=== PATIENT | male | born 1990 | race Caucasian/White ===

== ENCOUNTER 2017-01-31 10:02 | Emergency (ER) | payer BC ==
--- NOTE | 2017-01-31 10:30 | ER Document Report ---
ED Medical Screen (RME) - General Chief Complaint: Abdominal Pain Stated Complaint: ABDOMINAL PAIN Time Seen by Provider: 01/31/17 10:28 Notes: Is a 26-year-old male who presents emergency department complaining of right upper quadrant pain with sudden onset yesterday. Patient states that he noticed the pain when he was driving yesterday afternoon. Describes a sharp stabbing pain in the right upper quadrant with radiation into his back. Feels better leaning forward. Admits to associated nausea, loose stools. Denies any vomiting, constipation, bright red blood per rectum, dark tarry stools. Denies any previous GI history. Otherwise healthy male. No tobacco user, denies alcohol or drug use. Alert and oriented 4, mild discomfort at baseline. Abdomen soft tender in the right upper quadrant negative for rebound or guarding. I have greeted and performed a rapid initial assessment of this patient. A comprehensive ED assessment and evaluation of the patient, analysis of test results and completion of the medical decision making process will be conducted by additional ED providers. TRAVEL OUTSIDE OF THE [place] IN LAST 30 DAYS: No - Related Data Allergies/Adverse Reactions: No Known Allergies Allergy (Unverified 01/31/17 10:05) Past Medical History - Social History Frequency of alcohol use: Rare Drug Abuse: None Renal/ Medical History: Denies: Hx Peritoneal Dialysis Physical Exam - Vital signs Vitals: Temp Pulse Resp BP Pulse Ox 98.1 F 56 L 16 145/92 H 98 01/31/17 10:05 01/31/17 10:05 01/31/17 10:05 01/31/17 10:05 01/31/17 10:05 Course - Vital Signs Vital signs: Temp Pulse Resp BP Pulse Ox 98.1 F 56 L 16 145/92 H 98 01/31/17 10:05 01/31/17 10:05 01/31/17 10:05 01/31/17 10:05 01/31/17 10:05
[2017-01-31] MEDS ORDERED: ONDANSETRON 4 MG TAB.RAPDIS PO ONE (10:31)
[2017-01-31] MEDS ORDERED: OXYCODONE-ACETAMINOPHEN 5-325 MG TABLET PO ONE (10:31)
[2017-01-31 10:45] LABS: ABSOLUTE EOSINOPHILS # (AUTO) 0.1 10^3/uL (0.0-0.6); ABSOLUTE LYMPHOCYTES (AUTO) 1.1 10^3/uL (0.5-4.7); ABSOLUTE MONOCYTES (AUTO) 0.7 10^3/uL (0.1-1.4); ABSOLUTE NEUT (AUTO) 4.3 10^3/uL (1.7-8.2); BASOPHILS % (AUTO) 0.7 % (0-2); EOSINOPHILS % (AUTO) 1.3 % (0-6); HEMATOCRIT 47.3 % (37.9-51.0); HEMOGLOBIN 15.9 g/dL (13.5-17.0); HGB HCT DIFFERENCE 0.4; LYMPHOCYTES % (AUTO) 17.7 % (13-45); MEAN CORPUSCULAR HGB CONC 33.7 g/dL (32.0-36.0); MEAN CORPUSCULAR VOLUME 89 fl (80-97); MONOCYTES % (AUTO) 10.8 % (3-13); RED CELL DISTRIBUTION WIDTH 12.3 % (11.5-14.0); SEGMENTED NEUTROPHILS % (AUTO) 69.5 % (42-78); WHITE BLOOD COUNT 6.1 10^3/uL (4.0-10.5)
[2017-01-31 10:55] LABS: ALANINE AMINOTRANSFERASE 76 U/L (21-72); ALBUMIN 4.8 g/dL (3.5-5.0); ALKALINE PHOSPHATASE 83 U/L (38-126); ANION GAP 15 (5-19); ASPARTATE AMINO TRANSFERASE 43 U/L (17-59); BILIRUBIN,DIRECT 0.4 mg/dL (0.0-0.4); BILIRUBIN,TOTAL 0.9 mg/dL (0.2-1.3); BLOOD UREA NITROGEN 11 mg/dL (7-20); CALCIUM 9.4 mg/dL (8.4-10.2); CARBON DIOXIDE 27 mmol/L (22-30); CHLORIDE 98 mmol/L (98-107); CREATININE RESULT 0.91 mg/dL (0.52-1.25); GLUCOSE 110 mg/dL (75-110); POTASSIUM 4.3 mmol/L (3.6-5.0); SODIUM 140.1 mmol/L (137-145); TOTAL PROTEIN 8.5 g/dL (6.3-8.2)
[2017-01-31 10:56] LABS: APPEARANCE,URINE CLEAR; BILIRUBIN,URINE NEGATIVE (NEGATIVE); GLUCOSE, URINE NEGATIVE (NEGATIVE); KETONES,URINE NEGATIVE (NEGATIVE); LEUKOCYTE ESTERASE,URINE NEGATIVE (NEGATIVE); NITRITE,URINE NEGATIVE (NEGATIVE); PROTEIN,URINE NEGATIVE (NEGATIVE); URINE SPECIFIC GRAVITY 1.009; UROBILINOGEN,URINE NEGATIVE mg/dL (<2.0)
--- NOTE | 2017-01-31 12:10 | RADIOLOGY REPORT (SQ) ---
EXAM DESCRIPTION: U/S ABDOMEN LIMITED W/O DOP COMPLETED DATE/TIME: 01/31/2017 11:56 am REASON FOR STUDY: RUQ pain COMPARISON: None. TECHNIQUE: Dynamic and static grayscale images acquired of the abdomen and recorded on PACS. Additio nal selected color Doppler and spectral images recorded. LIMITATIONS: None. FINDINGS: PANCREAS: No masses. Visualized pancreatic duct normal caliber. LIVER: No masses. Echotexture normal. LIVER VASCULATURE: Normal directional flow of the main portal vein and hepatic veins. GALLBLADDER: Multiple small gallbladder polyps are visualized largest which measures approximately 4 to 5 mm in size. No gallbladder wall thickening. No gallstones. No pericholecystic fluid. ULTRASOUND-DETECTED PARR'S SIGN: Negative. INTRAHEPATIC DUCTS AND COMMON DUCT: CBD and intrahepatic ducts normal caliber. No filling defects. INFERIOR VENA CAVA: Normal flow. AORTA: No aneurysm. RIGHT KIDNEY: Normal size. Normal echogenicity. No solid or suspicious masses. No hydronephrosis. No calcifications. PERITONEAL AND RIGHT PLEURAL SPACE: No ascites or effusions. OTHER: No other significant findings. IMPRESSION: Gallbladder polyps noted measuring between 4 and 5 mm in size. No gallstones. No acute cholecystitis. Otherwise unremarkable right upper quadrant ultrasound. TECHNICAL DOCUMENTATION: JOB ID: [id number] [employer]- All Rights Reserved
--- NOTE | 2017-01-31 13:31 | ER Document Report ---
ED GI/ - General Chief Complaint: Abdominal Pain Stated Complaint: ABDOMINAL PAIN Time Seen by Provider: 01/31/17 10:28 Mode of Arrival: Ambulatory Information source: Patient Notes: Patient is a 26-year-old male who presents to the ER today for right upper quadrant abdominal pain that began yesterday but worsened significantly today. Patient admits to nausea but denies vomiting. He also admits to some diarrhea. He still has his gallbladder. He denies any fevers or chills that he knows of. He has never had gallbladder issues before. He denies any radiation of the pain anywhere else. TRAVEL OUTSIDE OF THE [place] IN LAST 30 DAYS: No - Related Data Allergies/Adverse Reactions: No Known Allergies Allergy (Unverified 01/31/17 10:05) Past Medical History - General Information source: Patient - Social History Smoking Status: Never Smoker Frequency of alcohol use: Rare Drug Abuse: None Family History: Reviewed & Not Pertinent Patient has suicidal ideation: No Patient has homicidal ideation: No Renal/ Medical History: Denies: Hx Peritoneal Dialysis Review of Systems - Review of Systems Constitutional: No symptoms reported EENT: No symptoms reported Cardiovascular: No symptoms reported Respiratory: No symptoms reported Gastrointestinal: See HPI Genitourinary: No symptoms reported Male Genitourinary: No symptoms reported Musculoskeletal: No symptoms reported Skin: No symptoms reported Hematologic/Lymphatic: No symptoms reported Neurological/Psychological: No symptoms reported Physical Exam - Vital signs Vitals: Temp Pulse Resp BP Pulse Ox 98.1 F 56 L 16 145/92 H 98 01/31/17 10:05 01/31/17 10:05 01/31/17 10:05 01/31/17 10:05 01/31/17 10:05 - Notes Notes: PHYSICAL EXAMINATION: GENERAL: Uncomfortable appearing, but in no acute distress. HEAD: Atraumatic, normocephalic. EYES: Pupils equal round and reactive to light, extraocular movements intact, sclera anicteric, conjunctiva are normal. NECK: Normal range of motion, supple without lymphadenopathy LUNGS: CTAB and equal. No wheezes rales or rhonchi. HEART: Regular rate and rhythm without murmurs ABDOMEN: Soft, right upper quadrant tenderness. No guarding, no rebound BACK: no vertebral tenderness, normal ROM GI/: no CVA tenderness EXTREMITIES: Normal range of motion, no pitting edema. No cyanosis. NEUROLOGICAL: Cranial nerves grossly intact. Normal sensory/motor exams. PSYCH: Normal mood, normal affect. SKIN: Warm, Dry, normal turgor, no rashes or lesions noted Course - Re-evaluation Re-evalutation: 01/31/17 13:28 Lab work is unremarkable including a normal white blood cell count, bilirubin, liver function testing. Ultrasound revealed gallbladder polyps, 4 and 5 mm in size, no stones or cholecystitis. Patient pain is completely relieved with Percocet and his nausea is relieved with Zofran. At this time I have consulted with Dr. Maldonado , my attending, who advises discharge and quick follow-up with surgeon. 01/31/17 13:29 - Vital Signs Vital signs: Temp Pulse Resp BP Pulse Ox 97.5 F 56 L 16 119/54 L 98 01/31/17 13:49 01/31/17 13:49 01/31/17 13:49 01/31/17 13:49 01/31/17 10:05 - Laboratory Result Diagrams: 01/31/17 10:20 01/31/17 10:20 Laboratory results interpreted by me: 01/31/17 10:20 ALT 76 H Total Protein 8.5 H Discharge - Discharge Clinical Impression: Polyp of gallbladder, Right upper quadrant abdominal pain, Nausea Disposition: HOME, SELF-CARE Additional Instructions: Return immediately for any new or worsening symptoms. Follow up with surgeon, call tomorrow to make followup appointment. Prescriptions: Ondansetron [Zofran Odt 4 mg Tablet] 1 - 2 tab PO Q4H PRN #15 tab.rapdis PRN Reason: For Nausea/Vomiting Oxycodone HCl/Acetaminophen [Percocet 5-325 mg Tablet] 1 - 2 tab PO Q4H PRN #15 tablet PRN Reason: Forms: Return to Work Referrals: KAMRON DAVALOS MD [ACTIVE STAFF] - Follow up as needed
[2017-01-31 13:50] VITALS: BP 119/54
== END 2017-01-31 13:51 | disposition home or self-care (01) ==
LOC: ER 10:02
DX: R10.11 Right upper quadrant pain (principal); K82.4 Cholesterolosis of gallbladder; R11.0 Nausea; R19.7 Diarrhea, unspecified
CPT/HCPCS: 99284; 36415; 83690; 85025; 80053; 81001; 76705; S0119

== ENCOUNTER 2017-03-01 06:59 | Day surgery (SDC) | payer BC ==
[~2017-03-01 06:59] MED LIST: ACETAMINOPHEN 325 MG TABLET PO PRN; BUPIVACAINE HCL 0.25 % INJ/PF (2.5 MG/1 ML) 30 ML VIAL ONE; CEFAZOLIN 1 GM/D5W RTU 1 GM/50 ML RTUPB IV PRN; LACTATED RINGERS 1000 ML IV PRN; LIDOCAINE 0.5% INJ-PF (5 MG/ML) 50 ML SDV SUBCUT PRN
[2017-03-01] MEDS ORDERED: LIDOCAINE 2% INJ-PF (20 MG/ML) 10 ML AMPUL ONE (08:22)
[2017-03-01] MEDS ORDERED: FENTANYL CITRATE INJ/PF 250 MCG/5 ML AMPULE ONE (08:22)
[2017-03-01] MEDS ORDERED: DEXAMETHASONE SOD PHOSPHATE INJ 4 MG/1 ML VIAL ONE (08:23)
[2017-03-01] MEDS ORDERED: ACETAMINOPHEN 100 ML IV ONE (08:23)
[2017-03-01] MEDS ORDERED: PROPOFOL INJ 200 MG/20 ML VIAL IV ONE (08:23)
[2017-03-01] MEDS ORDERED: ONDANSETRON HCL INJ/PF 4 MG/2 ML SDV ONE ×2 (08:23→09:22)
[2017-03-01] MEDS ORDERED: MIDAZOLAM 2 MG/2 ML INJ ONE (08:23)
[2017-03-01] MEDS ORDERED: MEPERIDINE HCL/PF INJ 25 MG/1 ML DISP.SYRIN IV PRN ×2 (09:00→10:00)
[2017-03-01] MEDS ORDERED: MORPHINE SULFATE 10 MG/ML INJ IV PRN ×2 (09:00→09:40)
[2017-03-01] MEDS ORDERED: PROMETHAZINE HCL INJ 25 MG/1 ML VIAL IV PRN ×3 (09:00→10:00)
[2017-03-01] MEDS ORDERED: OXYCODONE-ACETAMINOPHEN 5-325 MG TABLET PO PRN ×3 (09:00→09:40)
[2017-03-01] MEDS ORDERED: FENTANYL CITRATE INJ/PF 100 MCG/2 ML AMPUL IV PRN ×4 (09:00→10:00)
[2017-03-01] MEDS ORDERED: DIPHENHYDRAMINE HCL 50 MG/ML VIAL IV PRN ×2 (09:00→10:00)
--- NOTE | 2017-03-01 09:18 | Operative Report ---
Operative Report DATE OF SURGERY: 03/01/17 PREOPERATIVE DIAGNOSIS: Symptomatic cholelithiasis with cholecystitis POSTOPERATIVE DIAGNOSIS: Same OPERATION: Laparoscopic cholecystectomy SURGEON: RONNIE OATES ANESTHESIA: GA - The patient TISSUE REMOVED OR ALTERED: 1 gallbladder with stones COMPLICATIONS: None ESTIMATED BLOOD LOSS: Scant INTRAOPERATIVE FINDINGS: See below PROCEDURE: The patient was seen in the preop holding area, taken the main operating room where general anesthesia was induced. The abdomen was exposed, prepped and draped in sterile fashion and instrumentation set up for laparoscopic cholecystectomy Surgical plan and surgical timeout were conducted Skin was any status of quarter percent Marcaine for intended for port laparoscopy. A supraumbilical horizontal incision was made with a knife, Veress needle inserted peritoneal cavity pneumoperitoneum was established. Veress needle was removed, 5 mm port was placed into the peritoneal cavity a 5 mm flexible viewing scope was inserted. Under direct visualization 3 additional ports were placed one in the subxiphoid to in the subcostal position Findings are significant for adhesions between the gallbladder and the gastroduodenal region. These were taken down using a combination of sharp and blunt dissection. Once this was accomplished the gallbladder was grasped in the fundus and infundibulum, and the relevant anatomy dissected out. Cystic artery and cystic duct were in their classic location. Photographs were taken. We opened up the triangle of Calot low widely and got on both right and left sides of the triangle. Cystic artery was clipped twice proximally once distally divided with scissors. Critical view was obtained. Again photograph taken. Cystic duct milked of any possible stones clipped twice proximally once distally divided scissors. The gallbladder was removed from the liver bed using hook cautery dissection. It was brought to the patient to the supraumbilical port site incision. We returned the peritoneal cavity checked for bleeding there was none. Sponge and counts correct. We checked for any visceral injury and there was none. All ports removed under direct visualization, pneumoperitoneum evacuated wounds closed with 0 Vicryl 3-0 Vicryl benzoin and Steri-Strips. Patient tolerated the procedure well, extubated taken recovery room stable condition.
[2017-03-01] MEDS: FENTANYL CITRATE INJ/PF 100 MCG/2 ML AMPUL ONE ×2 (09:20→09:25)
--- NOTE | 2017-03-01 09:20 | PDOC DISCHARGE SUMMARY ---
Discharge Summary (SDC) - Discharge Final Diagnosis: GS Date of Surgery: 03/01/17 Discharge Date: 03/01/17 Condition: Good Treatment or Instructions: [facility] [address], [place] [address] Discharge Instructions: Laparoscopic Surgery 1. General Information: a. DO NOT DRIVE a car or operate dangerous machinery for 3-4 days or while taking narcotic pain pills. b. DO NOT consume alcohol, tranquilizers, sleeping medications or any non- prescribed medications for 24 hours unless approved by your doctor or as long as taking narcotic prescription medications. c. DO NOT make important decisions or sign any important papers for the first 24 hours after surgery. d. When discharged home the same day of surgery have a responsible person with you for the first night. 2. Activity Restrictions: 2 weeks. a. NO heavy lifting, straining abdominal muscles, bending over a lot, yard work, house work, or sports for [address] for 3-4 days or while taking toradol . c. It is fine to go for walks, up and down steps, ride in a car. d. Elevate your head when sleeping/resting. 3. Treatment: a. You may shower 24 hours after surgery, no baths or swimming for 2 weeks. Remove band-aids or dressings before shower but leave paper strips (steri-strips ) on the skin to fall off on their own. If still on at postoperative visit they will be removed then. b. Drainage of fluid or blood is not unusual from an incision. If occurs, you can clean with peroxide and cotton ball daily and cover with dry gauze until the wound seals. c. If a lot of bleeding occurs, you can hold pressure with a gauze or cloth over the site for 10 minutes and it will usually stop. If bleeding continues you will need to call for possible evaluation in office or emergency room. 4. Medications: a. Toradol may be taken for pain as needed, one or two tablets every 4-6 hours. Stop the narcotic when able since you cannot take it and drive, and they cause constipation. You may switch to plain Tylenol, Advil or Aleve as you transition from the narcotic. Many adults find good pain relief with Advil 600- 800 mg three times a day with meals. This can cause indigestion, ulcers, and kidney problems with long-term use. b. You should resume all normal medications unless a change is specified by your doctors. c. Begin with clear liquids and may progress to your normal diet if not nauseated. No high fat, high protein foods the day of surgery. Normal diet 6. The following may occur after laparoscopic surgery: a. Shoulder or upper back ache from retained gas that should resolve in 1-2 days b. Soreness and bruising at incision sites will resolve with time. c. Scrotal swelling (labia in women) and bruising is often seen after hernia surgery. d. Sore throat e. Fatigue may last days to weeks. f. Difficulty urinating may occur and may need to come into emergency room for urinary catheter placement. 7. Notify Physician If: a. Worsening or pain not improved with pain medication b. Persistent nausea and vomiting c. Fever above 101 d. Persistent bleeding or swelling at operative site e. Unable to urinate and uncomfortable bladder 6-8 hours after surgery 8..Follow Up Care: a. Schedule a follow up appointment with your doctor for 2 weeks. In the event of any postoperative problems or questions or you may call the office during business hours or the On-Call physician evenings and weekends at [facility]. [facility] I understand the instructions for my postoperative care as described above and a copy has been given to me. Patient/Significant Other Witness Date Discharge Diet: As Tolerated Discharge Activity: Activity As Tolerated Home Care Assistance: None Needed Report the Following to Your Physician Immediately: Shortness of Breath, Increase in Pain, Fever over 101 Degrees
[2017-03-01] MEDS ORDERED: ONDANSETRON HCL INJ/PF 4 MG/2 ML SDV IV PRN ×2 (09:40→10:00)
[2017-03-01] MEDS ORDERED: KETOROLAC TROMETHAMINE 60 MG/2 ML SDV IM PRN (09:40)
[2017-03-01] MEDS ORDERED: RINGERS SOLUTION,LACTATED 1,000 ML IV PRN (09:40)
[2017-03-01] MEDS ORDERED: VECURONIUM BROMIDE INJ 10 MG VIAL IV ONE (10:18)
[2017-03-01] MEDS ORDERED: GLYCOPYRROLATE INJ 0.4 MG/2 ML VIAL ONE (10:18)
[2017-03-01] MEDS ORDERED: NEOSTIGMINE METHYLSULFATE 10 MG/10 ML VIAL ONE (10:18)
[2017-03-01] MEDS ORDERED: SUCCINYLCHOLINE CHLORIDE INJ 200 MG/10 ML VIAL ONE (10:18)
[2017-03-01 13:18] VITALS: BP 115/74
== END 2017-03-01 11:55 | disposition home or self-care (01) ==
LOC: OROUT 06:59
PROVIDERS: ATTEND Surgery
PROC: 0FT44ZZ Resection of Gallbladder, Percutaneous Endoscopic Approach (ICD-10-PCS; principal; 2017-03-01 09:00)
DX: K81.1 Chronic cholecystitis (principal); Z87.891 Personal history of nicotine dependence
CPT/HCPCS: 88304 ×2; 47562; J2250; J0690; J1100; J1885; J3010 ×2; J3490 ×2; J2270; J0330; J2405; J2704; J0131; 790